=== PATIENT | male | born 1965 | race Caucasian/White ===

== ENCOUNTER 2019-06-05 21:28 | Inpatient (IN) ==
[2019-06-05] MEDS ORDERED: 0.9 % Sodium Chloride 1,000 ML IVC ONE (21:52)
[2019-06-05 22:11] LABS: Basophils % 0.3 %; Eosinophils # 0.1 K/mcL (0.0-0.6); Eosinophils % 0.8 %; Hematocrit 48.2 % (37.5-50.1); Hemoglobin 14.9 g/dL (12.9-16.9); Immature Granulocytes % 0.8 % (0-4); Lymphocytes # 0.7 K/mcL (0.6-4.6); Lymphocytes % 9.4 %; Mean Corpuscular HGB Conc 30.9 g/dL (31.6-35.5); Mean Corpuscular Hemoglobin 25.4 pg (28.0-33.3); Mean Corpuscular Volume 82.3 fL (83.0-100.0); Mean Platelet Volume 8.7 fL (9.4-12.4); Monocytes # 0.7 K/mcL (0.0-1.3); Monocytes % 9.1 %; Neutrophils # 5.8 K/mcL (1.6-8.9); Platelet Count 226 K/mcL (140-400); Red Blood Count 5.86 M/mcL (4.19-5.50); Red Cell Distribution Width 16.4 % (11.5-14.5); Segmented Neutrophils % 79.6 %; White Blood Count 7.2 K/mcL (4.3-11.1)
[2019-06-05 22:32] LABS: Alanine Aminotransferase 26 Units/L (7-52); Albumin 3.9 g/dL (3.5-5.7); Alkaline Phosphatase 88 Units/L (34-104); Aspartate Amino Transferase 18 Units/L (13-39); BUN/Creatinine Ratio 10 (6-26); Bilirubin,Direct 0.1 mg/dL (0.0-0.2); Bilirubin,Indirect 0.5 mg/dL (0.0-1.0); Bilirubin,Total 0.6 mg/dL (0.3-1.0); Blood Urea Nitrogen 9 mg/dL (6-20); Calcium 8.7 mg/dL (8.6-10.3); Carbon Dioxide 25 mEq/L (23-29); Chloride 104 mEq/L (98-107); Globulin 3.9 g/dL (2.4-3.5); Glucose 94 mg/dL (70-105); Magnesium 1.8 mg/dL (1.6-2.6); Osmolality,Calculated 276 (280-300); Phosphorous 2.5 mg/dL (2.7-4.5); Potassium 3.6 mEq/L (3.5-5.1); Sodium 134 mEq/L (136-145); Total Protein 7.8 g/dL (6.4-8.9); Troponin I < 0.03 ng/mL (< 0.04); eGFR For African Americans > 60 (> 60); eGFR For Non-African Americans > 60 (> 60)
[2019-06-05] MEDS ORDERED: Morphine Sulfate 2 MG/ML SYRINGE IVP ONE (22:36)
[2019-06-05] MEDS ORDERED: Isovue-370 500 ML BOTTLE IVP ONE (22:37)
[2019-06-05] MEDS ORDERED: *HR* OxyCODONE Immed Rel 5 MG TABLET PO ONE (22:46)
[2019-06-05 23:40] LABS: Bilirubin,Urine Negative (Negative); Blood,Urine Negative (Negative); Clarity,Urine Clear (Clear); Color,Urine Yellow (Yellow); Glucose,Urine (UA) Normal (Normal); Ketones,Urine Negative (Negative); Leukocyte Esterase,Urine Negative (Negative); Nitrite,Urine Negative (Negative); Protein,Urine Negative (Neg-Trace); Specific Gravity,Urine > 1.030 (1.010-1.025); Urobilinogen,Urine Normal (Normal)
[2019-06-06 00:34] LABS: Adenovirus Not Detected (Not Detect); Coronavirus 229E Not Detected (Not Detect); Coronavirus HKU1 Not Detected (Not Detect); Coronavirus NL63 Not Detected (Not Detect); Coronavirus OC43 Not Detected (Not Detect); Human Metapneumovirus DETECTED (Not Detect); Human Rhinovirus/Enterovirus Not Detected (Not Detect); Influenza A Subtype 2009 H1 Not Detected (Not Detect); Influenza B Not Detected (Not Detect); Parainfluenza Virus 1 Not Detected (Not Detect); Parainfluenza Virus 2 Not Detected (Not Detect); Parainfluenza Virus 3 Not Detected (Not Detect); Parainfluenza Virus 4 Not Detected (Not Detect); Respiratory Syncytial Virus Not Detected (Not Detect)
[2019-06-06 00:35] LABS: Bordetella Pertussis Not Detected (Not Detect); Chlamydophila pneumoniae Not Detected (Not Detect); Mycoplasma pneumoniae Not Detected (Not Detect)
[2019-06-06] MEDS ORDERED: Naloxone 0.4 MG/ML INJ IVP PRN (02:35)
[2019-06-06] MEDS ORDERED: Albuterol 2.5 MG/3 ML NEBULIZER IH PRN (02:47)
[2019-06-06] MEDS ORDERED: Azithromycin 500 MG in 0.9 % Sodium Chloride 250 ML IVPB SCH (03:00)
[2019-06-06] MEDS: Ipratropium/Albuterol Neb 3 ML IH SCH ×4 (03:29→23:24)
[2019-06-06] MEDS: *HR* OxyCODONE Immed Rel 5 MG TABLET PO PRN ×4 (03:41→21:36)
[2019-06-06] MEDS: *HR* Heparin 5,000 UNIT/ML VIAL SQ SCH ×2 (06:12→16:17)
[2019-06-06 06:45] LABS: Hematocrit 42.7 % (37.5-50.1); Hemoglobin 13.4 g/dL (12.9-16.9); Mean Corpuscular HGB Conc 31.4 g/dL (31.6-35.5); Mean Corpuscular Hemoglobin 26.3 pg (28.0-33.3); Mean Corpuscular Volume 83.7 fL (83.0-100.0); Platelet Count 195 K/mcL (140-400); Red Cell Distribution Width 16.6 % (11.5-14.5); White Blood Count 6.4 K/mcL (4.3-11.1)
[2019-06-06 07:02] LABS: BUN/Creatinine Ratio 10 (6-26); Blood Urea Nitrogen 10 mg/dL (6-20); Calcium 8.3 mg/dL (8.6-10.3); Carbon Dioxide 25 mEq/L (23-29); Chloride 104 mEq/L (98-107); Glucose 104 mg/dL (70-105); Osmolality,Calculated 279 (280-300); Potassium 3.7 mEq/L (3.5-5.1); Sodium 135 mEq/L (136-145); eGFR For African Americans > 60 (> 60); eGFR For Non-African Americans > 60 (> 60)
[2019-06-06] MEDS: Acetaminophen 325 MG TABLET PO PRN ×2 (08:27→17:57)
[2019-06-06] MEDS ORDERED: predniSONE 20 MG TABLET PO ONE (12:55)
[2019-06-06] MEDS ORDERED: Ketorolac 30 MG/ML VIAL IVP ONE (16:22)
[2019-06-06] MEDS: Benzonatate 100 MG CAPSULE PO PRN (21:36)
[2019-06-07] MEDS: Ipratropium/Albuterol Neb 3 ML IH SCH ×4 (04:44→22:32)
[2019-06-07] MEDS: *HR* Heparin 5,000 UNIT/ML VIAL SQ SCH ×2 (04:54→16:40)
[2019-06-07] MEDS: *HR* OxyCODONE Immed Rel 5 MG TABLET PO PRN ×4 (04:54→21:27)
[2019-06-07 05:57] LABS: Hematocrit 46.7 % (37.5-50.1); Mean Corpuscular Hemoglobin 25.3 pg (28.0-33.3); Mean Corpuscular Volume 84.3 fL (83.0-100.0); Platelet Count 210 K/mcL (140-400); Red Blood Count 5.54 M/mcL (4.19-5.50); Red Cell Distribution Width 16.7 % (11.5-14.5)
[2019-06-07 06:12] LABS: BUN/Creatinine Ratio 16 (6-26); Blood Urea Nitrogen 16 mg/dL (6-20); Calcium 9.1 mg/dL (8.6-10.3); Carbon Dioxide 26 mEq/L (23-29); Chloride 100 mEq/L (98-107); Glucose 144 mg/dL (70-105); Osmolality,Calculated 282 (280-300); Potassium 4.1 mEq/L (3.5-5.1); Sodium 134 mEq/L (136-145); eGFR For African Americans > 60 (> 60); eGFR For Non-African Americans > 60 (> 60)
[2019-06-07] MEDS: predniSONE 20 MG TABLET PO SCH (08:45)
[2019-06-07] MEDS: Azithromycin 250 MG TABLET PO SCH (08:45)
[2019-06-07] MEDS: Benzonatate 100 MG CAPSULE PO PRN (21:27)
[2019-06-08] MEDS: Ipratropium/Albuterol Neb 3 ML IH SCH ×2 (03:14→11:12)
[2019-06-08] MEDS: *HR* Heparin 5,000 UNIT/ML VIAL SQ SCH (05:51)
[2019-06-08] MEDS: Benzonatate 100 MG CAPSULE PO PRN (05:52)
[2019-06-08] MEDS: *HR* OxyCODONE Immed Rel 5 MG TABLET PO PRN ×2 (05:52→11:03)
[2019-06-08 07:25] VITALS: BP 154/102
[2019-06-08] MEDS: predniSONE 20 MG TABLET PO SCH (07:55)
[2019-06-08] MEDS: Azithromycin 250 MG TABLET PO SCH (07:55)
== END 2019-06-08 13:27 | disposition home or self-care (01) | DRG 871 ==
LOC: EMEROOARM 21:28 → 2NENU 21:28 → SUATTDRO 06-06 00:26 → 2NENU 06-06 01:15
PROVIDERS: ADMIT Family Medicine; ATTEND Internal Medicine